=== PATIENT | female | born 2000 | race Caucasian/White ===

== ENCOUNTER 2024-05-22 11:27 | Outpatient (CLI) | payer OTHER ==
[2024-05-26 15:38] LABS: VZV Real Time PCR Negative (Negative)
[2024-05-27 18:13] LABS: HBV as IU/mL HBV DNA not detected IU/mL (.)
== END 2024-05-22 11:28 | disposition home or self-care (01) ==
LOC: BURLAB 11:27
PROVIDERS: ATTEND Nurse Practitioner Family
DX: Z00.01 Encounter for general adult medical examination with abnormal findings (principal)
CPT/HCPCS: 36415; 87517; 87798